=== PATIENT | male | born 1985 | race Caucasian/White ===

== ENCOUNTER → 2020-03-22 | Outpatient (CLI) | payer OTHER ==
--- NOTE | 2020-03-22 11:55 | RAD ---
PQRS Compliance Statement: One or more of the following individualized dose reduction techniques were utilized for this examination: 1. Automated exposure control 2. Adjustment of the mA and/or kV according to patient size 3. Use of iterative reconstruction technique CT abdomen/pelvis without contrast 03/22/2020 11:13 AM INDICATION: Right lower quadrant abdominal pain, tenderness status post inguinal hernia repair 2 weeks ago COMPARISON: None available TECHNIQUE: Multiple axial CT images of the abdomen and pelvis were obtained without intravenous contrast. Coronal and sagittal reformats are provided. FINDINGS: Visualized portions of the lung bases are clear. Heart size is within normal limits. Evaluation of the solid abdominal viscera is limited by lack of intravenous contrast. No suspicious hepatic masses are identified. Spleen, bilateral adrenal glands, and pancreas are normal in appearance. Gallbladder is present without adjacent inflammatory changes. Small and large bowel are normal in caliber. There is no evidence for bowel obstruction. There are no pericolonic inflammatory changes. A normal, nondilated appendix is visualized without adjacent inflammatory changes. The kidneys are relatively symmetric in appearance. There is no suspicious renal mass within the limitations of a noncontrast examination. There is no hydronephrosis. There are no calculi within the kidneys, ureters or urinary bladder. Urinary bladder is within normal limits in degree of distention. Prostate and seminal vesicles appear normal. Postoperative changes are identified from suspected bilateral inguinal hernia repair. More extensive soft tissue inflammation is identified within the left lower pelvis along the left inguinal region extending superiorly and abutting the antimesenteric margin of the junction of the left colon and sigmoid colon. No bowel obstruction. No suspicious osseous abnormality. IMPRESSION: Postsurgical changes are identified from suspected bilateral inguinal hernia repair. There is extensive soft tissue inflammation deep to the left inguinal ring, possibly associated with areas of fat necrosis. There is no extensive inflammation involving the right inguinal ring. No abscess is identified. There is minimal inflammation involving the antimesenteric border of the junction of the left colon and sigmoid colon. Appendix is normal in appearance. No obstructive uropathy. Electronically signed by: Emily Benitez MD (03/22/2020 11:52 AM) [facility]
== END | disposition home or self-care (01) ==
LOC: CT 11:05
PROVIDERS: ATTEND Family Medicine
DX: R10.813 Right lower quadrant abdominal tenderness (principal); K52.89 Other specified noninfective gastroenteritis and colitis
CPT/HCPCS: 74176